=== PATIENT | male | born 1940 | race Caucasian/White ===

== ENCOUNTER 2024-04-20 21:27 | Emergency (ER) | payer MEDICARE ==
[~2024-04-20] VITALS: Ht 154.9 cm; Wt 79.4 kg
[2024-04-20] MEDS ORDERED: METH5TAB34 PO (21:50)
[2024-04-20] MEDS ORDERED: TADA5TAB2 PO (21:50)
[2024-04-20] MEDS ORDERED: LOSA25TA27 PO (21:50)
[2024-04-20] MEDS ORDERED: ATOR20TA PO (21:50)
[2024-04-20 21:53] LABS: BASOPHILS % (AUTO) 0.5 % (0.0-2.0); EOSINOPHILS # (AUTO) 0.2 K/uL (0.0-0.7); HEMATOCRIT 40.4 % (36.7-47.1); HEMOGLOBIN 13.4 g/dL (12.5-16.3); LYMPHOCYTES # (AUTO) 2.3 K/uL (0.8-4.8); LYMPHOCYTES % (AUTO) 27.4 % (20.5-51.5); MEAN CORPUSCULAR HEMOGLOBIN 30.3 uug (23.8-33.4); MEAN CORPUSCULAR HGB CONC 33 g/dL (32.5-36.3); MEAN CORPUSCULAR VOLUME 91.1 fL (73.0-96.2); MONOCYTES # (AUTO) 0.7 K/uL (0.1-1.30); MONOCYTES % (AUTO) 8.6 % (0.0-11.0); NEUTROPHILS # (AUTO) 5.2 K/uL (1.8-8.9); NEUTROPHILS % (AUTO) 61.5 % (38.5-71.5); PLATELET COUNT (AUTO) 205 K/uL (152-348); RED BLOOD CELL COUNT(AUTO) 4.44 MIL/uL (4.06-5.63); RED CELL DISTRIBUTION WIDTH 13.5 % (12.1-16.2); WHITE BLOOD COUNT (AUTO) 8.5 K/uL (3.6-10.2)
[2024-04-20] MEDS ORDERED: CEVI30CA PO (21:53)
[2024-04-20 21:58] LABS: DIFFERENTIAL COMMENT 1
[2024-04-20 22:01] LABS: CALCIUM 8.8 mg/dL (8.5-10.1); CARBON DIOXIDE 27 mmol/L (21-32); CHLORIDE 101 mmol/L (98-107); GLUCOSE 107 mg/dL (74-106); SODIUM SERUM 137 mmol/L (136-145); UREA NITROGEN, BLOOD 25 mg/dL (7-18)
[2024-04-20] MEDS ORDERED: FAMOTIDINE. 20 MG/2 ML VIAL IV ONE (22:06)
[2024-04-20] MEDS: FAMOTIDINE. 20 MG/2 ML VIAL IV ONE (22:12)
[2024-04-20 22:14] LABS: ALANINE AMINOTRANSFERASE 22 U/L (16-63); ALBUMIN 3.2 g/dL (3.4-5.0); ALKALINE PHOSPHATASE 61 U/L (50-136); ASPARTATE AMINOTRANSFERASE 10 U/L (15-37); BILIRUBIN,DIRECT 0.1 mg/dL (0.0-0.2); BILIRUBIN,TOTAL 0.3 mg/dL (0.2-1.0); NT-PRO BNP 55 pg/mL (0-125); TOTAL PROTEIN, SERUM 6.5 g/dL (6.4-8.2)
[2024-04-20 23:41] LABS: *BILIRUBIN,URIN NEGATIVE (NEGATIVE); *BLOOD, URINE NEGATIVE (NEGATIVE); *CLARITY,URINE CLEAR (CLEAR); *COLOR,URINE YELLOW (YELLOW); *KETONES,URINE NEGATIVE (NEGATIVE); *PROTEIN,URINE NEGATIVE (NEGATIVE); *UROBILINOGEN,URINE 0.2 E.U./dl (NORMAL); LEUKOCYTE ESTERASE ,URINE NEGATIVE (NEGATIVE); NITRITE, URINE NEGATIVE (NEGATIVE); UGLUCOSE NEGATIVE (NEGATIVE)
[2024-04-21] MEDS: LORAZEPAM 0.5 MG TABLET PO ONE (00:30)
[2024-04-21 00:35] VITALS: BP 123/77; TEMP 97.7; O2SAT 97
== END 2024-04-21 00:35 | disposition left against medical advice (07) ==
LOC: ER 21:29
DX: R07.89 Other chest pain (principal); F41.9 Anxiety disorder, unspecified; E86.0 Dehydration; E46 Unspecified protein-calorie malnutrition; R10.12 Left upper quadrant pain; E78.5 Hyperlipidemia, unspecified; Z79.899 Other long term (current) drug therapy; Z68.33 Body mass index [BMI] 33.0-33.9, adult
CPT/HCPCS: 99285; 74176; 96374; 71045; 80076; 80048; 81003; 83880; 83690; 85025; 85379; 85730; 84484 ×2; 36415 ×2; 93005; J3490; A4606; A4663